=== PATIENT | male | born 1975 | race Two or more races ===

== ENCOUNTER → 2020-07-02 08:00 | Outpatient (CLI) | payer OTHER | END | disposition home or self-care (01) | LOC: LAB 08:00 → ADM 09:00 → EDSTATUS 07-09 09:00 → CIR.AMB 07-09 09:00 | PROVIDERS: ATTEND Surgery | DX: K40.91 Unilateral inguinal hernia, without obstruction or gangrene, recurrent (principal); K42.9 Umbilical hernia without obstruction or gangrene; Z03.818 Encounter for observation for suspected exposure to other biological agents ruled out; R10.9 Unspecified abdominal pain; I10 Essential (primary) hypertension; Z20.822 Contact with and (suspected) exposure to COVID-19 ==

== ENCOUNTER 2020-08-13 09:30 | Day surgery (SDC) | payer OTHER ==
[2020-08-13] MEDS ORDERED: ULTRAM50 MG PO (11:14)
[2020-08-13] MEDS ORDERED: TYLENOL ARTHRI650 MG PO (11:14)
[2020-08-13] MEDS ORDERED: NEURONTIN300 MG PO (11:14)
[2020-08-13] MEDS ORDERED: MIRALAX17 GM PO (11:14)
== END 2020-08-13 16:05 | disposition home or self-care (01) ==
LOC: CIR.AMB 09:30
PROVIDERS: ATTEND Surgery
DX: K40.91 Unilateral inguinal hernia, without obstruction or gangrene, recurrent (principal); K42.9 Umbilical hernia without obstruction or gangrene; Z20.822 Contact with and (suspected) exposure to COVID-19